=== PATIENT | female | born 1970 | race Hispanic/Latino ===

== ENCOUNTER 2017-09-19 12:06 | Emergency (ER) | payer MEDICAID, SELFPAY ==
[2017-09-19 12:06] VITALS: BMI 29.2
--- NOTE | 2017-09-19 13:24 | ED PDOC ---
Arrival/HPI <Jesus Randle - Last Filed: 09/19/17 17:55> <Israel Matute - Last Filed: 09/19/17 18:39> - General Chief Complaint: Psychiatric Evaluation Time Seen by Provider: 09/19/17 12:11 - History of Present Illness Narrative History of Present Illness (Text): 47 year old female with past medical history of cholecystectomy and hip surgery presents with pressured speech, distractibility, irritability, mild grandiosity , flight of ideas, decreased sleep, and increased activity for at least 24 hours. She presents with her mother. Patient reports being triggered by a facebook article regarding Ramses Arriaga. She also had delusions while speaking to her about whether her child would be taken from her or if someone would come to hurt or kill her if she gave doctors information about her psychiatrist. Patient reported that she was not thinking about hurting herself or killing herself, or hurting others. She did not respond when asked if she was taking any illicit drugs. She reports she is taking her psych medication but her mother says that she gets aggravated whenever asked about the medication. Patient reports being in good physical health except for hip pain due to surgery of the hip. She denies headache, dizziness, fever, chest pain, SOB, wheezing, cough, nausea, vomiting, constipation, diarrhea, dysuria, hematuria, or numbness and tingling of fingers or toes. 09/19/17 13:49 After talking to her with Dr. Matute, patient became agitated once told that she might be admitted to the hospital. Patient had to be restrained with hard restraints at 13:25 due to potential harm to herself and others. (Jesus Randle) Past Medical History - Provider Review Nursing Documentation Reviewed: Yes - Infectious Disease Hx of Infectious Diseases: None - Tetanus Immunization Tetanus Immunization: Unknown - Past Medical History Past Medical History: No Previous - Cardiac Hx Cardiac Disorders: No - Pulmonary Hx Respiratory Disorders: No Hx Tuberculosis: No - Neurological Hx Neurological Disorder: No Hx Seizures: No - HEENT Hx HEENT Disorder: No - Renal Hx Renal Disorder: No - Endocrine/Metabolic Hx Endocrine Disorders: No - Hematological/Oncological Hx Blood Disorders: No - Integumentary Hx Dermatological Disorder: No - Musculoskeletal/Rheumatological Hx Musculoskeletal Disorders: Yes Other/Comment: HIP DYSPLASIA - Gastrointestinal Hx Gastrointestinal Disorders: Yes Hx Hemorrhoids: Yes - Genitourinary/Gynecological Hx Genitourinary Disorders: No - Psychiatric Hx Psychophysiologic Disorder: Yes Hx Anxiety: Yes Hx Substance Use: Yes (MARIJUANA) - Surgical History Hx Section: Yes Hx Cholecystectomy: Yes Hx Orthopedic Surgery: Yes - Anesthesia Hx Anesthesia Reactions: No Hx Malignant Hyperthermia: No - Suicidal Assessment Feels Threatened In Home Enviroment: No <Jeuss Randle - Last Filed: 09/19/17 17:55> Family/Social History - Physician Review Nursing Documentation Reviewed: Yes Family/Social History: Unknown Family HX Smoking Status: Current Some Days Smoker Hx Alcohol Use: Yes Frequency of alcohol use: Socially Hx Substance Use: Yes (MARIJUANA) Hx Substance Use Treatment: No <Jesus Randle - Last Filed: 09/19/17 17:55> Allergies/Home Meds <Jesus Randle - Last Filed: 09/19/17 17:55> <Israel Matute - Last Filed: 09/19/17 18:39> Allergies/Adverse Reactions: Allergies codeine Allergy (Verified 09/19/17 12:20) VOMITING IV ABT Allergy (Mild, Uncoded 10/15/13 02:09) ITCH PER PT UPON ASSESSMENT STATED "UPON INFUSION OF AN IV ABT SHE STATED SHE HAD ITCHING ALL OVER HER BODY BUT IT STOPPED AFTER IT FINISH" Home Medications: Home Meds Medication Instructions Recorded Confirmed No Known Home Med [No Known Home 10/15/13 09/19/17 Med] Review of Systems - Physician Review All systems were reviewed & negative as marked: Yes - Review of Systems Constitutional: Normal Eyes: Normal Respiratory: Normal Cardiovascular: Normal Gastrointestinal: Normal Musculoskeletal: Normal Skin: Normal Neurological: Gait Changes (due to hip surgery) Psychiatric: Anxiety, Other (delusions, hallucinations). absent: Suicidal Ideation <Jesus Randle - Last Filed: 09/19/17 17:55> Physical Exam Vital Signs Reviewed: Yes Temperature: Afebrile Blood Pressure: Normal Pulse: Tachycardic Respiratory Rate: Normal Appearance: Positive for: Unkept Pain Distress: None Mental Status: Positive for: Alert and Oriented X 3, Agitated, other (manic) - Systems Exam Head: Present: Atraumatic, Normocephalic Pupils: Present: PERRL Extroacular Muscles: Present: EOMI Conjunctiva: Present: Normal Nose (External): Present: Atraumatic Respiratory/Chest: Present: Clear to Auscultation Cardiovascular: Present: Regular Rate and Rhythm, Normal S1, S2 Abdomen: Present: Normal Bowel Sounds. No: Tenderness, Distention Upper Extremity: Present: Normal Inspection, Normal ROM, NORMAL PULSES Lower Extremity: Present: Normal Inspection, NORMAL PULSES, Normal ROM Neurological: Present: GCS=15, CN II-XII Intact, Motor Func Grossly Intact. No : Speech Normal (pressured speech), Gait Normal (hip surgery) Skin: Present: Warm, Dry, Normal Color, Abrasion (on left hand from patient id band) Psychiatric: Present: Alert, Oriented x 3, Anxious, Agitated, Delusional, Hallucinations. No: Normal Insight, Normal Affect, Normal Mood, Suicidal Ideation, Homicidal Ideation <Jesus Randle - Last Filed: 09/19/17 17:55> <Israel Matute - Last Filed: 09/19/17 18:39> Vital Signs Temp Pulse Resp BP Pulse Ox 09/19/17 18:24 98.4 F 86 18 122/69 100 09/19/17 17:16 98.2 F 98 H 18 128/72 98 09/19/17 15:19 102 H 18 123/72 100 09/19/17 12:22 98.8 F 125 H 23 133/92 H 98 09/19/17 12:06 98.8 F 125 H 23 133/92 H 98 Medical Decision Making <Jesus Randle - Last Filed: 09/19/17 17:55> <Israel Matute - Last Filed: 09/19/17 18:39> ED Course and Treatment: Impression: 47 year old with past medical history of cholecystectomy and hip surgery presents with pressured speech, distractibility, irritability, grandiosity, flight of ideas, decreased sleep, and increased activity for at least 24 hours. Assessment: Manic episode vs. Anxiety Plan: Psychiatry consulted. 1:1 due to potential harm to self or others. Hard restraints, lorazepam, haloperidol ordered due to being uncooperative CBC, CMP for electrolyte abnormalities and blood count abnormalities such as elevated WBC to evaluate for cause of psychosis. UDS, acetaminophen level, salicylates, blood alcohol level to evaluate for drug abuse. CXR, EKG, Urine analysis as part of order set for admitting patient and to evaluate for other causes of psychosis. 09/19/17 16:19 WBC was 16.7, HCO3 was 17, Anion gap was 27, and UDS showed positive cocaine and cannabinoids. 09/19/17 17:11 Chest X ray shows no acute pulmonary disease. EKG: sinus tachycardia at [address] elevations, normal intervals 09/19/17 17:55 Repeat WBC is 12.5 from 16.7 and Hgb is 11.8 from 13.9. Patient will be transferred to [facility] for hospitalization for manic episode. (Jesus Randle) 09/19/17 14:16 47 year old female presents to the Emergency department complaining of anxiety and decreased sleep since yesterday. In agreement with resident note, which includes further HPI details. Patient was seen and evaluated with resident, came up with plan and treatment together. Patient appeared to have very pressure speech and flight of ideas. She was explaining delusional thoughts. No SI or HI. As per mom she has not been taking care of herself, not sleeping and she suspects that she's not taking her medications. Mom doesn't know what medications she takes. I explained to patient that I would recommend she get evaluated by PES but when I told her that there could be a chance they'd recommend admission she get very upset. She started yelling loudly. She approached my personal space quickly. I was concern that patient would be a harm to herself and other so I tried to keep her from leaving. She would not reason with me. I gave her time to reconsider. At this point she would not reconsider and so I sedated her with Ativan and Haldol for her safety and the safety other others. Mom was explained what occurred. She feels that her daughter needs help at this point. She waited for PES. PES came to evaluate patient and talked to patient and mom of patient. She recommends [facility] screening. EKG: Sinus tachy at [address] elevations, nl intervals 09/19/17 16:30 WBC 16. CXR normal. UA negative for UTI. Utox is positive for cocaine and cannabioids. Patient has no infectious process at this time. Patient is medically cleared for psych evaluation/ 09/19/17 18:37 WBC improved to 12. Patient continues to be medically cleared for psych evaluation. Patient is pending [facility] medical center screening. Signed out to Dr. Elgin Lyn to f/u [facility] Screener evaluation and Psych dispo. (Israel Matute ) - Lab Interpretations Lab Results: 09/19/17 17:15 09/19/17 13:20 Lab Results 09/19/17 17:15: WBC 12.5 H D, RBC 3.97, Hgb 11.8 L D, Hct 34.6 L, MCV 87.2, MCH 29.7, MCHC 34.1, RDW 13.1, Plt Count 399, MPV 9.2, Gran % 59.7, Lymph % (Auto) 23.7, [place] % (Auto) 8.2 H, Eos % (Auto) 8.0 H, Baso % (Auto) 0.4, Gran # 7.47 H , Lymph # (Auto) 3.0, [place] # (Auto) 1.0 H, Eos # (Auto) 1.0 H, Baso # (Auto) 0.05 09/19/17 15:00: Urine HCG, Qual Negative 09/19/17 15:00: Urine Opiates Screen Negative, Urine Methadone Screen Negative, Ur Barbiturates Screen Negative, Ur Phencyclidine Scrn Negative, Ur Amphetamines Screen Negative, U Benzodiazepines Scrn Negative, U Oth Cocaine Metabols Positive H, U Cannabinoids Screen Positive H 09/19/17 15:00: Urine Color Light yellow, Urine Appearance Clear, Urine pH 6.5, Ur Specific [place] 1.010, Urine Protein Negative, Urine Glucose (UA) Negative, Urine Ketones Trace H, Urine Blood Trace-intact H, Urine Nitrate Negative, Urine Bilirubin Negative, Urine Urobilinogen 0.2, Ur Leukocyte Esterase Negative , Urine RBC Negative, Urine WBC 1 - 3, Ur Epithelial Cells 0 - 2, Urine Bacteria Few 09/19/17 13:20: Alcohol, Quantitative < 10 09/19/17 13:20: Salicylates < 1 L, Acetaminophen < 10.0 L 09/19/17 13:20: Sodium 142, Potassium 3.9, Chloride 101, Carbon Dioxide 17 L, Anion Gap 27 H, BUN 9, Creatinine 0.9, Est GFR ( Amer) > 60, Est GFR (Non -Af Amer) > 60, Random Glucose 125 H, Calcium 10.0, Magnesium 2.1, Total Bilirubin 0.6, AST 31, ALT 20, Alkaline Phosphatase 111, Total Protein 9.3 H, Albumin 4.9 H, Globulin 4.4, Albumin/Globulin Ratio 1.1 09/19/17 13:20: WBC 16.7 H, RBC 4.60, Hgb 13.9, Hct 41.1, MCV 89.3, MCH 30.2, MCHC 33.8, RDW 13.2, Plt Count 505 H, MPV 9.5, Gran % 68.0, Lymph % (Auto) 21.9 L, [place] % (Auto) 6.5 H, Eos % (Auto) 3.2, Baso % (Auto) 0.4, Gran # 11.33 H, Lymph # (Auto) 3.7 H, [place] # (Auto) 1.1 H, Eos # (Auto) 0.5, Baso # (Auto) 0.07 - RAD Interpretation Radiology Orders: 09/19/17 13:36 CXR [CHEST PORTABLE] [RAD] Stat - Medication Orders Current Medication Orders: Discontinued Medications Haloperidol Lactate (Haldol) 5 mg IM STAT STA Stop: 09/19/17 13:25 Last Admin: 09/19/17 13:40 Dose: Lorazepam (Ativan) 2 mg IM ONCE ONE Stop: 09/19/17 13:26 Last Admin: 09/19/17 13:40 Dose: <Jesus Randle - Last Filed: 09/19/17 17:55> - PA / [employer] COURTESY CLERK / Resident Statement / has reviewed & agrees with the documentation as recorded. / has examined the patient and agrees with the treatment plan. - Scribe Statement The provider has reviewed the documentation as recorded by the Scribe <Israel Matute - Last Filed: 09/19/17 18:39> - Scribe Statement Urvashi Pérez. All medical record entries made by the Scribe were at my direction and personally dictated by me. I have reviewed the chart and agree that the record accurately reflects my personal performance of the history, physical exam, medical decision making, and the department course for this patient. I have also personally directed, reviewed, and agree with the discharge instructions and disposition. (Israel Matute) Disposition/Present on Arrival - Present on Arrival Any Indicators Present on Arrival: No History of DVT/PE: No History of Uncontrolled Diabetes: No Urinary Catheter: No History of Decub. Ulcer: No History Surgical Site Infection Following: None - Disposition Have Diagnosis and Disposition been Completed?: Yes Disposition Time: 17:14 <Jesus Randle - Last Filed: 09/19/17 17:55> <Israel Matute - Last Filed: 09/19/17 18:39> - Disposition Diagnosis: Manic behavior, Cocaine abuse Patient Problems: Current Active Problems Problem Status Onset Cocaine abuse Acute Manic behavior Acute Condition: STABLE Forms: [employer] (Citizen Of [place])
[2017-09-19 13:42] LABS: BASO # 0.07 K/mm3 (0.0-2.0); BASO % 0.4 % (0.0-3.0); EOS # 0.5 (0.0-0.7); EOS % 3.2 % (1.5-5.0); GRAN # 11.33 (1.4-6.5); HEMOGLOBIN 13.9 g/dL (12.0-16.0); LYMPH # 3.7 (1.2-3.4); LYMPH % 21.9 % (22.0-35.0); MEAN CELL VOLUME 89.3 fl (80.0-105.0); MEAN CORPUSCULAR HEMOGLOBIN 30.2 pg (25.0-35.0); MEAN CORPUSCULAR HGB CONC 33.8 g/dl (31.0-37.0); MEAN PLATELET VOLUME 9.5 fl (7.0-11.0); MONO # 1.1 (0.1-0.6); MONO % 6.5 % (1.0-6.0); RBC 4.6 10^6/uL (3.5-6.1); RED CELL DISTRIBUTION WIDTH 13.2 % (11.5-14.5); WHITE BLOOD COUNT 16.7 10^3/ul (4.5-11.0)
[2017-09-19 13:51] LABS: ACETAMINOPHEN < 10.0 ug/ml (10.0-20.0); SALICYLATE < 1 mg/dL (2.0-20.0)
[2017-09-19 13:53] LABS: ALB/GLOB RATIO 1.1 (1.1-1.8)
[2017-09-19 13:55] LABS: ALBUMIN 4.9 g/dL (3.0-4.8); ALT/SGPT 20 U/L (7-56); AST/SGOT 31 U/L (14-36); BLOOD UREA NITROGEN 9 mg/dL (7-21); GFR AFRICAN-AMERICAN > 60; GFR NON-AFRICAN AMERICAN > 60
[2017-09-19 15:20] VITALS: RESP 18
[2017-09-19 15:30] LABS: PH,URINE 6.5 (4.7-8.0); URINE APPEARANCE CLEAR (CLEAR); URINE BILIRUBIN NEGATIVE (NEGATIVE); URINE BLOOD TRACE-INTACT (NEGATIVE); URINE COLOR LIGHT YELLOW (YELLOW); URINE GLUCOSE (UA) NEGATIVE (NEGATIVE); URINE LEUKOCYTE ESTERASE NEGATIVE Leu/uL (NEGATIVE); URINE PROTEIN NEGATIVE mg/dL (<30 mg/dL); URINE UROBILINOGEN 0.2 E.U./dL (<1 E.U./dL)
--- NOTE | 2017-09-19 15:33 | RAD ---
Date of service: 09/19/2017 HISTORY: psych COMPARISON: 05/30/2014. FINDINGS: LUNGS: The lungs are well inflated and clear. PLEURA: No significant pleural effusion identified, no pneumothorax apparent. CARDIOVASCULAR: Normal. OSSEOUS STRUCTURES: No significant abnormalities. VISUALIZED UPPER ABDOMEN: Normal. OTHER FINDINGS: None. IMPRESSION: No active pulmonary disease.
[2017-09-19 15:48] LABS: BARBITURATES, UR NEGATIVE (NEGATIVE); BENZODIAZEPINES, UR NEGATIVE (NEGATIVE); OPIATES, UR NEGATIVE (NEGATIVE); PHENCYCLIDINE, UR NEGATIVE (NEGATIVE)
[2017-09-19 16:20] LABS: URINE BACTERIA FEW (NEG); URINE EPITHELIAL CELLS 0 - 2 /hpf (0-5); URINE RBC NEGATIVE /hpf (0-2)
[2017-09-19 17:31] LABS: BASO # 0.05 K/mm3 (0.0-2.0); BASO % 0.4 % (0.0-3.0); GRAN # 7.47 (1.4-6.5); GRAN % 59.7 % (50.0-68.0); HEMOGLOBIN 11.8 g/dL (12.0-16.0); LYMPH % 23.7 % (22.0-35.0); MEAN CELL VOLUME 87.2 fl (80.0-105.0); MEAN CORPUSCULAR HEMOGLOBIN 29.7 pg (25.0-35.0); MEAN CORPUSCULAR HGB CONC 34.1 g/dl (31.0-37.0); MEAN PLATELET VOLUME 9.2 fl (7.0-11.0); MONO % 8.2 % (1.0-6.0); RBC 3.97 10^6/uL (3.5-6.1); RED CELL DISTRIBUTION WIDTH 13.1 % (11.5-14.5); WHITE BLOOD COUNT 12.5 10^3/ul (4.5-11.0)
--- NOTE | 2017-09-20 03:24 | ED PDOC ---
Physical Exam Vital Signs Reviewed: Yes Vital Signs Temp Pulse Resp BP Pulse Ox 09/19/17 21:14 120 H 18 108/66 98 09/19/17 18:24 98.4 F 86 18 122/69 100 09/19/17 17:16 98.2 F 98 H 18 128/72 98 09/19/17 15:19 102 H 18 123/72 100 09/19/17 12:22 98.8 F 125 H 23 133/92 H 98 09/19/17 12:06 98.8 F 125 H 23 133/92 H 98 Medical Decision Making ED Course and Treatment: 09/20/17 03:[address] zhu with pending pes screening. patient was seen by pes and has cleared the patient for discharge. patient does no appear to be an acute threat to herself or others at this time and is no committable for inpt tx. patient can be discharged home and ED visit eval for cocaine induced mood disorder. Reassessment Condition: Improved (patient is calm with nonpressured speech) - Lab Interpretations Lab Results: 09/19/17 17:15 09/19/17 13:20 Lab Results 09/19/17 17:15: WBC 12.5 H D, RBC 3.97, Hgb 11.8 L D, Hct 34.6 L, MCV 87.2, MCH 29.7, MCHC 34.1, RDW 13.1, Plt Count 399, MPV 9.2, Gran % 59.7, Lymph % (Auto) 23.7, [place] % (Auto) 8.2 H, Eos % (Auto) 8.0 H, Baso % (Auto) 0.4, Gran # 7.47 H , Lymph # (Auto) 3.0, [place] # (Auto) 1.0 H, Eos # (Auto) 1.0 H, Baso # (Auto) 0.05 09/19/17 15:00: Urine HCG, Qual Negative 09/19/17 15:00: Urine Opiates Screen Negative, Urine Methadone Screen Negative, Ur Barbiturates Screen Negative, Ur Phencyclidine Scrn Negative, Ur Amphetamines Screen Negative, U Benzodiazepines Scrn Negative, U Oth Cocaine Metabols Positive H, U Cannabinoids Screen Positive H 09/19/17 15:00: Urine Color Light yellow, Urine Appearance Clear, Urine pH 6.5, Ur Specific [place] 1.010, Urine Protein Negative, Urine Glucose (UA) Negative, Urine Ketones Trace H, Urine Blood Trace-intact H, Urine Nitrate Negative, Urine Bilirubin Negative, Urine Urobilinogen 0.2, Ur Leukocyte Esterase Negative , Urine RBC Negative, Urine WBC 1 - 3, Ur Epithelial Cells 0 - 2, Urine Bacteria Few 09/19/17 13:20: Alcohol, Quantitative < 10 09/19/17 13:20: Salicylates < 1 L, Acetaminophen < 10.0 L 09/19/17 13:20: Sodium 142, Potassium 3.9, Chloride 101, Carbon Dioxide 17 L, Anion Gap 27 H, BUN 9, Creatinine 0.9, Est GFR ( Amer) > 60, Est GFR (Non -Af Amer) > 60, Random Glucose 125 H, Calcium 10.0, Magnesium 2.1, Total Bilirubin 0.6, AST 31, ALT 20, Alkaline Phosphatase 111, Total Protein 9.3 H, Albumin 4.9 H, Globulin 4.4, Albumin/Globulin Ratio 1.1 09/19/17 13:20: WBC 16.7 H, RBC 4.60, Hgb 13.9, Hct 41.1, MCV 89.3, MCH 30.2, MCHC 33.8, RDW 13.2, Plt Count 505 H, MPV 9.5, Gran % 68.0, Lymph % (Auto) 21.9 L, [place] % (Auto) 6.5 H, Eos % (Auto) 3.2, Baso % (Auto) 0.4, Gran # 11.33 H, Lymph # (Auto) 3.7 H, [place] # (Auto) 1.1 H, Eos # (Auto) 0.5, Baso # (Auto) 0.07 - RAD Interpretation Radiology Orders: 09/19/17 13:36 CXR [CHEST PORTABLE] [RAD] Stat - Medication Orders Current Medication Orders: Discontinued Medications Acetaminophen (Tylenol 325mg Tab) 975 mg PO STAT STA Stop: 09/19/17 22:09 Last Admin: 09/19/17 22:38 Dose: 975 mg Haloperidol Lactate (Haldol) 5 mg IM STAT STA Stop: 09/19/17 13:25 Last Admin: 09/19/17 13:40 Dose: Lorazepam (Ativan) 2 mg IM ONCE ONE Stop: 09/19/17 13:26 Last Admin: 09/19/17 13:40 Dose: Disposition/Present on Arrival - Present on Arrival Any Indicators Present on Arrival: No History of DVT/PE: No History of Uncontrolled Diabetes: No Urinary Catheter: No History of Decub. Ulcer: No History Surgical Site Infection Following: None - Disposition Have Diagnosis and Disposition been Completed?: Yes Diagnosis: Manic behavior, Cocaine abuse Disposition: HOME/ ROUTINE Disposition Time: 03:25 Patient Plan: Discharge Patient Problems: Current Active Problems Problem Status Onset Manic behavior Acute Cocaine abuse Acute Condition: STABLE Discharge Instructions (ExitCare): Drug Abuse Treatment Print Language: TU[place] Additional Instructions: ITZEL NEW, thank you for letting us take care of you today. Your provider was Dr. Rafael Lyn and you were treated for mood disorder. The emergency medical care you received today was directed at your acute symptoms. If you were prescribed any medication, please fill it and take as directed. It may take several days for your symptoms to resolve. Return to the Emergency Department if your symptoms worsen, do not improve, or if you have any other problems. Please contact your doctor or call one of the physicians/clinics you have been referred to that are listed on the Patient Visit Information form that is included in your discharge packet. Bring any paperwork you were given at discharge with you along with any medications you are taking to your follow up visit. Our treatment cannot replace ongoing medical care by a primary care provider outside of the emergency department. Thank you for allowing the [facility] team to be part of your care today. If you had an X-Ray or CT scan: A Radiologist will review the ED reading if any change in treatment is needed we will contact you. If you had a blood, urine, or wound culture: It will take several days for the results, if any change in treatment is needed we will contact you. If you had an STI test: It will take 48 hours for the results. Please call after 1 week if you have not heard back. Forms: [employer] (Mal[place]ian)
[2017-09-20 03:34] VITALS: BP 100/55; PULSE 90; TEMP 98.2; O2SAT 100
--- NOTE | 2017-09-20 09:22 | CARD ---
APPROVED REPORT Date of service: 09/19/2017 EKG Measurement Heart [id number] <Conclusion> Sinus tachycardia Otherwise normal ECG
== END 2017-09-20 03:43 | disposition home or self-care (01) ==
LOC: ED 12:06
DX: F14.10 Cocaine abuse, uncomplicated (principal); F30.9 Manic episode, unspecified
CPT/HCPCS: 71045; 80053; 80320; 80324; 80329; 80345; 80346; 80349; 80353; 80358; 80361; 81001; 83735; 83992; 84703; 85025; 93005; 99285; J1630; J2060